=== PATIENT | female | born 1965 | race Caucasian/White ===

== ENCOUNTER 2016-06-24 18:32 | Emergency (ER) | payer MEDICARE, MEDICAID ==
[~2016-06-24 18:32] MED LIST: ACETAMINOPHEN500 M4 PO; ALBUTEROL SULF8.5 G1 IH; AMITRIPTYLINE H75 MG; ATIVAN0.5 MG PO; CALCITRIOL0.25 MC1 PO; CALCITRIOL0.5 MC1 PO; CALCIUM500 M3 PO; CALCIUM600 M1 PO; DOCUSATE SODIU100 M2 PO; ELAVIL75 MG; ESKALITH300 MG PO; GLUCOPHAGE500 MG; H; IRON325 M3 PO; KLOR-CON M20 MEQ/TAB PO; LAMICTAL100 MG PO; LAMICTAL25 MG PO; LASIX40 MG; LEVOTHYROXINE150 MC3 PO; LINZESS290 MC1 PO; LIPITOR20 MG PO; LITHIUM CARBON300 M1 PO; LORAZEPAM1 M1 PO; LORCET 5-325 M1 EAC1 PO; MAGNESIUM OXID400 M1 PO; METRONIDAZOLE PO; MIRALAX17 G1 PO; NEXIUM20 M1 PO; NITRO-BID30 GM; NORCO 5-325 TA1 EACH PO; POTASSIUM99 M4 PO; PRAVACHOL40 MG; PRILOSEC20 MG PO; SENOKOT-S (SENN1 TA1 PO; SEROQUEL XR400 MG; SPIRONOLACTONE25 MG; SYNTHROID137 MC1 PO; TEMAZEPAM30 M1 PO; TIZANIDINE HCL2 M3 PO; TIZANIDINE HCL4 M2 PO; VALIUM2 MG PO; VALIUM5 MG PO; VISTARIL50 MG PO; ZANAFLEX4 M PO; ZINC SULFATE220 MG PO; ZOFRAN ODT4 MG PO; ZOFRAN4 M2 PO
[2016-06-24 19:21] LABS: BASO % 0.4 % (0-2); BASO ABSOLUTE COUNT 0.1 tho/cmm (0.0-0.2); EOS % 2.1 % (0-7); EOSINOPHIL ABSOLUTE COUNT 0.3 tho/cmm (0.0-0.7); HCT-HEMATOCRIT 35.6 % (34.0-49.0); HGB-HEMOGLOBIN 11.5 gm/dl (12.0-15.5); IMMATURE GRANULOCYTES ABSOLUTE 0.02 tho/cmm (0-0.03); IMMATURE GRANULOCYTES PERCENT 0.2 % (0-0.3); LYMPH ABSOLUTE COUNT 2.9 tho/cmm (0.8-4.5); MCH (MEAN CORPUSCULAR HGB) 29.8 pg (28.0-32.0); MCHC MEAN CORPUSCULAR HGB CONC 32.3 % (32.0-36.0); MCV (MEAN CELL VOLUME) 92.2 fl (82.0-96.0); MEAN PLATELET VOLUME 9.1 cmc (9.4-12.4); MONO % 5.5 % (0-12); MONOCYTE ABSOLUTE COUNT 0.7 tho/cmm (0.0-1.2); NEUTROPHIL ABSOLUTE COUNT 8.3 tho/cmm (1.6-8.0); NEUTROPHIL-AUTOMATED 8.3 tho/cmm (1.6-8.0); NEUTROPHILS % 67.8 % (40-80); PLATELET COUNT 288 tho/cmm (150-450); RED BLOOD COUNT 3.86 mil/cmm (4.00-5.20); RED CELL DISTRIBUTION WIDTH 15.2 % (12.4-16.4); WHITE BLOOD COUNT 12.2 tho/cmm (4.0-10.0)
[2016-06-24 19:46] LABS: ALBUMIN 3.7 g/dl (3.5-5.0); ALKALINE PHOSPHATASE 65 U/L (33-138); ALT/SGPT 26 U/L (12-78); ANION GAP 11 mmol/L (0-20); BILIRUBIN,TOTAL 0.5 mg/dl (0-1.5); BLOOD UREA NITROGEN 11 mg/dl (6-24); CARBON DIOXIDE-VENOUS 27 mmol/L (22-32); CHLORIDE 105 mmol/l (96-110); CREATININE 1.06 mg/dl (0.50-1.10); GLUCOSE 114 mg/dL (70-110); POTASSIUM 3.9 mmol/L (3.7-5.1); SODIUM 139 mmol/L (135-145); eGFR VALUE FOR BLACK 72 mL/Min
[2016-06-24 19:47] LABS: AST/SGOT 21 U/L (10-40)
[2016-09-04] MEDS ORDERED: DOXEPIN HCL50 M1 PO (13:26)
[2016-10-19] MEDS ORDERED: IBUPROFEN800 M1 PO (12:59)
[2016-10-19] MEDS ORDERED: CYCLOBENZAPRINE10 M1 PO (12:59)
== END 2016-06-24 20:07 ==
LOC: EDMED 18:32
PROVIDERS: Nurse Practitioner Family
DX: S30.1XXA Contusion of abdominal wall, initial encounter (principal); D64.9 Anemia, unspecified; J45.909 Unspecified asthma, uncomplicated; F17.200 Nicotine dependence, unspecified, uncomplicated; X58.XXXA Exposure to other specified factors, initial encounter

== ENCOUNTER 2016-07-07 22:28 | Emergency (ER) | payer MEDICARE, MEDICAID ==
[2016-07-07 23:28] LABS: BASO % 0.7 % (0-2); BASO ABSOLUTE COUNT 0.1 tho/cmm (0.0-0.2); EOSINOPHIL ABSOLUTE COUNT 0.2 tho/cmm (0.0-0.7); HCT-HEMATOCRIT 36.8 % (34.0-49.0); HGB-HEMOGLOBIN 11.8 gm/dl (12.0-15.5); IMMATURE GRANULOCYTES ABSOLUTE 0.02 tho/cmm (0-0.03); IMMATURE GRANULOCYTES PERCENT 0.2 % (0-0.3); LYMPH % 41.6 % (20-45); LYMPH ABSOLUTE COUNT 3.7 tho/cmm (0.8-4.5); MCH (MEAN CORPUSCULAR HGB) 29.6 pg (28.0-32.0); MCHC MEAN CORPUSCULAR HGB CONC 32.1 % (32.0-36.0); MCV (MEAN CELL VOLUME) 92.2 fl (82.0-96.0); MEAN PLATELET VOLUME 9.4 cmc (9.4-12.4); MONO % 5.9 % (0-12); MONOCYTE ABSOLUTE COUNT 0.5 tho/cmm (0.0-1.2); NEUTROPHIL ABSOLUTE COUNT 4.4 tho/cmm (1.6-8.0); NEUTROPHIL-AUTOMATED 4.4 tho/cmm (1.6-8.0); NEUTROPHILS % 49.6 % (40-80); PLATELET COUNT 280 tho/cmm (150-450); RED BLOOD COUNT 3.99 mil/cmm (4.00-5.20); RED CELL DISTRIBUTION WIDTH 14.6 % (12.4-16.4); WHITE BLOOD COUNT 8.9 tho/cmm (4.0-10.0)
[2016-07-07 23:31] LABS: PREGNANCY-SERUM NEGATIVE (NEGATIVE)
[2016-07-07 23:47] LABS: URINE APPEARANCE CLEAR; URINE BILIRUBIN NEGATIVE (NEG); URINE BLOOD NEGATIVE (NEG); URINE COLOR PALE YELLOW; URINE GLUCOSE (UA) NEGATIVE (NEG); URINE KETONE NEGATIVE (NEG); URINE LEUKOCYTE ESTERASE NEGATIVE (NEG); URINE NITRITE NEGATIVE (NEG); URINE PROTEIN NEGATIVE (NEG); URINE SPECIFIC GRAVITY 1.005 (1.003-1.030)
[2016-07-07 23:51] LABS: ALB/GLOB RATIO 0.9 (0.8-2.0); ALBUMIN 3.7 g/dl (3.5-5.0); ALKALINE PHOSPHATASE 61 U/L (33-138); ALT/SGPT 24 U/L (12-78); ANION GAP 13 mmol/L (0-20); AST/SGOT 17 U/L (10-40); BILIRUBIN,TOTAL 0.2 mg/dl (0-1.5); BLOOD UREA NITROGEN 9 mg/dl (6-24); CALCIUM 8.4 mg/dl (8.5-10.5); CARBON DIOXIDE-VENOUS 26 mmol/L (22-32); CHLORIDE 105 mmol/l (96-110); CREATININE 0.85 mg/dl (0.50-1.10); GLUCOSE 104 mg/dL (70-110); LIPASE 167 U/L (73-393); POTASSIUM 3.2 mmol/L (3.7-5.1); SODIUM 141 mmol/L (135-145); eGFR VALUE FOR BLACK >90 mL/Min
[2016-09-04] MEDS ORDERED: DOXEPIN HCL50 M1 PO (13:26)
[2016-10-19] MEDS ORDERED: IBUPROFEN800 M1 PO (12:59)
[2016-10-19] MEDS ORDERED: CYCLOBENZAPRINE10 M1 PO (12:59)
== END 2016-07-08 01:52 ==
LOC: EDMED 22:28
PROVIDERS: Emergency Medicine
DX: R10.9 Unspecified abdominal pain (principal); E87.6 Hypokalemia; F31.9 Bipolar disorder, unspecified; E78.5 Hyperlipidemia, unspecified; F17.200 Nicotine dependence, unspecified, uncomplicated; R11.2 Nausea with vomiting, unspecified